=== PATIENT | female | born 1980 | race Caucasian/White ===

== ENCOUNTER 2017-04-15 11:27 | Outpatient (CLI) ==
[2016-03-15 21:36] VITALS: BMI 26.5
--- NOTE | 2017-04-15 12:57 | DI ---
EXAM: Radiographs, cervical spine HISTORY: Neck pain. COMPARISON: None available. TECHNIQUE: Six views. FINDINGS: There is reversal of the normal lordosis centered at C5-6. Alignment is normal. Vertebra l body heights are maintained. There is moderate loss of disc height at C6-7 with associated endplat e osteophyte formation. There is mild loss of disc height and endplate osteophyte formation at C5-6. No fracture or subluxation detected. Prevertebral soft tissues are unremarkable. IMPRESSION: 1. Degenerative disc disease at C5-6 and C6-7. 2. Reversal of the normal cervical lordosis.
--- NOTE | 2017-04-15 12:59 | DI ---
EXAM: Thoracic spine radiographs. HISTORY: Chronic back pain. COMPARISON: None available. TECHNIQUE: Frontal, lateral and swimmer's views. FINDINGS: The normal curvature and alignment are maintained. Vertebral body and intervertebral disc heights are normal. Mild multilevel endplate osteophyte formation noted. No fracture or subluxatio n seen. Adjacent soft tissues are unremarkable. IMPRESSION: Mild degenerative disc disease.
== END 2017-04-15 11:28 | disposition home or self-care (01) ==
LOC: RAD 11:27
PROVIDERS: ATTEND Family Medicine
DX: M54.2 Cervicalgia (principal); M54.6 Pain in thoracic spine; G89.29 Other chronic pain

== ENCOUNTER 2017-05-01 06:41 | Emergency (ER) ==
[2017-05-01 06:46] VITALS: BP 125/81; TEMP 99.6
[2017-05-01] MEDS ORDERED: NORCO 10-325 PO STA (07:00)
[2017-05-01] MEDS ORDERED: BENADRYL IM STA (07:00)
[2017-05-01] MEDS ORDERED: DECADRON 4 MG/ML SDV IM STA (07:00)
--- NOTE | 2017-05-01 07:05 | ED.PDOC ---
General ED Provider: Dr. ARLENE HARRIS Chief Complaint: Fever Stated Complaint: insect bite right leg Time Seen by Physician: 07:00 (seen with romulo at all times photos attached) Mode of Arrival: Walk-In Information Source: Patient Exam Limitations: No limitations Primary Care Provider: CARLIN HAWK Nursing and Triage Documentation Reviewed and Agree: Yes (see photos) Review of Systems - Review Of Systems Constitutional: Reports: No symptoms Eyes: Reports: No symptoms Ears, Nose, Mouth, Throat: Reports: No symptoms Respiratory: Reports: No symptoms Cardiac: Reports: No symptoms GI: Reports: No symptoms : Reports: No symptoms Musculoskeletal: Reports: No symptoms Skin: Reports: Rash (right upper leg see photos) Neurological: Reports: No symptoms Endocrine: Reports: No symptoms Hematologic/Lymphatic: Reports: No symptoms All Other Systems: Reviewed and Negative Past Medical History - Past Medical History Previously Healthy: No Endocrine: Reports: None Cardiovascular: Reports: None Respiratory: Reports: None Hematological: Reports: None Gastrointestinal: Reports: GERD Genitourinary: Reports: None Neuro/Psych: Reports: Migraine, Anxiety, Depression Musculoskeletal: Reports: None Cancer: Reports: None Last Menstrual Period: 2 YEARS AGO - Surgical History General Surgical History: Reports: Other (spinal cord procedure) - Family History Family History: Reports: None - Social History Smoking Status: Never smoker Hx Substance Use: No Alcohol Screening: Occasionally - Immunizations Tetanus Shot up to Date: Yes Physical Exam - Physical Exam Appearance: Well-appearing, No pain distress, Well-nourished Eyes: TALON, EOMI, Conjunctiva clear ENT: Ears normal, Nose normal, Oropharynx normal Respiratory: Airway patent, Breath sounds clear, Breath sounds equal, Respirations nonlabored Cardiovascular: RRR, Pulses normal, No rub, No murmur GI/: Soft, Nontender, No masses, Bowel sounds normal, No Organomegaly Musculoskeletal: Normal strength, ROM intact, No edema, No calf tenderness Skin: Warm, Dry (3 cm rash as noted in the photos ) Neurological: Sensation intact, Motor intact, Reflexes intact, Cranial nerves intact, Alert, Oriented Psychiatric: Affect appropriate, Mood appropriate Critical Care Note - Critical Care Note Total Time (mins): 0 Course - Course Hematology/Chemistry: 05/01/17 07:15 Orders, Labs, Meds: Lab Review 05/01/17 05/01/17 07:15 07:15 WBC 9.21 RBC 4.08 L Hgb 11.6 L Hct 34.5 L MCV 84.6 MCH 28.4 MCHC 33.6 RDW Coeff of Sarah 14.1 Plt Count 171 Immature Gran % (Auto) 0.2 Neut % (Auto) 92.4 Lymph % (Auto) 2.3 L [place] % (Auto) 2.5 Eos % (Auto) 2.5 Baso % (Auto) 0.1 Immature Gran # (Auto) 0.0 Neut # 8.5 H Lymph # 0.2 L [place] # 0.2 L Eos # 0.2 Baso # 0.0 Serum , Qual Negative Orders Category Date Time Status CBC W/ AUTO DIFF Stat LAB 05/01/17 07:01 Ordered COMPREHENSIVE METABOLIC PANEL Stat LAB 05/01/17 07:01 Ordered MOLECULAR GROUP A STREP Stat LAB 05/01/17 07:20 Results RAPID STREP SCREEN [STREP SCREEN] Stat LAB 05/01/17 07:20 Results SERUM Stat LAB 05/01/17 Ordered Dexamethasone 4 mg/ml Inj [Decadron 4 mg/ml Sdv] MEDS 05/01/17 07:00 Stat 4 mg IM ONCE STA Diphenhydramine Inj [Benadryl] MEDS 05/01/17 07:00 Stat 25 mg IM ONCE STA Hydrocodone Bit/Acetaminophen [[place] 10-325] MEDS 05/01/17 07:00 Stat 1 tab PO ONCE STA Medications Discontinued Medications Generic Name Dose Route Start Last Admin Trade Name Santiago PRN Reason Stop Dose Admin Acetaminophen/Hydrocodone Bitart 1 tab 05/01/17 07:00 05/01/17 07:16 [place] 10-325 PO 05/01/17 07:01 1 tab ONCE STA Administration Dexamethasone Sodium Phosphate 4 mg 05/01/17 07:00 05/01/17 07:19 Decadron 4 Mg/Ml Sdv IM 05/01/17 07:01 4 mg ONCE STA Administration Diphenhydramine HCl 25 mg 05/01/17 07:00 05/01/17 07:19 Benadryl IM 05/01/17 07:01 25 mg ONCE STA Administration Vital Signs: Temp Pulse Resp BP Pulse Ox 05/01/17 06:42 99.6 F 124 H 18 125/81 98 Departure - Departure Time of Disposition: 08:15 (seen with nurse at all times aand photos enclosed ) Disposition: HOME SELF-CARE Discharge Problem: Insect bite Qualifiers: Encounter type: initial encounter Qualified Code(s): W57.XXXA - Bitten or stung by nonvenomous insect and other nonvenomous arthropods, initial encounter Instructions: Insect Bite or Sting (ED) Condition: Good Pt referred to PMD for follow-up: Yes Prescriptions: Amoxicillin 500 mg PO Q8HR #15 tablet Hydrocodone/Acetaminophen [[place] 10-325 Tablet] 1 each PO Q8HR #4 tablet Prednisone 10 mg PO DAILYWM #7 tablet Allergies/Adverse Reactions: Allergies Penicillins Adverse Reaction (Verified 03/15/16 21:36) Home Medications: Ambulatory Orders Clonazepam [Klonopin] 1 mg PO QID 10/03/13 Fluoxetine HCl [Prozac] 10 mg PO DAILY 10/03/13 Ranitidine HCl [Zantac] 300 mg PO BID #30 tablet 04/23/15 Amoxicillin 500 mg PO Q8HR #15 tablet 05/01/17 Diclofenac Sodium [Voltaren] 50 mg PO TID 05/01/17 Gabapentin [Neurontin] 100 mg PO TID 05/01/17 Hydrocodone/Acetaminophen [[place] 10-325 Tablet] 1 each PO Q8HR #4 tablet Prednisone 10 mg PO DAILYWM #7 tablet 05/01/17 Disposition Discussed With: Patient
[2017-05-01 07:25] LABS: BASOPHILS % (AUTO) 0.1 % (0.0-3.0); EOSINOPHILS # (AUTO) 0.2 K/ul (0.0-0.7); EOSINOPHILS % (AUTO) 2.5 % (0.0-7.0); HEMATOCRIT 34.5 % (37.0-47.0); HEMOGLOBIN 11.6 g/dl (12.0-16.0); IMMATURE GRANULOCYTE % (AUTO) 0.2 % (0.0-5.0); LYMPHOCYTES # (AUTO) 0.2 K/uL (0.60-3.4); LYMPHOCYTES % (AUTO) 2.3 (10.0-50.0); MEAN CORPUSCULAR HEMOGLOBIN 28.4 pg (27.0-31.0); MEAN CORPUSCULAR HGB CONC 33.6 (31.8-35.4); MEAN CORPUSCULAR VOLUME 84.6 fl (81.0-99.0); MONOCYTES # (AUTO) 0.2 K/uL (0.4-2.0); MONOCYTES % (AUTO) 2.5 (0-10); NEUTROPHILS # (AUTO) 8.5 K/ul (2.0-6.9); NEUTROPHILS % (AUTO) 92.4; PLATELET COUNT 171 10^3/uL (140-440); RED BLOOD COUNT 4.08 10^6/ul (4.20-5.40); WHITE BLOOD COUNT 9.21 K/ul (4.6-10.2)
[2017-05-01 07:35] LABS: SERUM PREGNANCY INTERNAL QC INTERNAL QC VALID
[2017-05-01 07:40] LABS: ALBUMIN 3.5 g/dL (3.4-5.0); ALBUMIN/GLOBULIN RATIO 0.95; ANION GAP 12.5; BILIRUBIN,TOTAL 1.45 mg/dL (0.00-1.20); BUN/CREATININE RATIO 24.05; CALCIUM 8.7 mg/dL (8.2-10.2); CREATININE 0.79 mg/dL (0.60-1.30); POTASSIUM 3.5 mmol/L (3.5-5.10); TOTAL PROTEIN 7.2 g/dL (6.4-8.2)
== END 2017-05-01 09:01 | disposition home or self-care (01) ==
LOC: ED 06:41
DX: S70.361A Insect bite (nonvenomous), right thigh, initial encounter (principal); R50.9 Fever, unspecified; R21 Rash and other nonspecific skin eruption; W57.XXXA Bitten or stung by nonvenomous insect and other nonvenomous arthropods, initial encounter
CPT/HCPCS: 36415; 80053; 84703; 85025; 87651; 87880; 96372; 99283

== ENCOUNTER 2017-05-02 10:35 | Emergency (ER) ==
[2017-05-02 10:40] VITALS: BP 150/87; TEMP 98.3
[2017-05-02] MEDS ORDERED: VANCOMYCIN 1 GM in SODIUM CHLORIDE 250 ML IV STA (11:20)
[2017-05-02] MEDS ORDERED: MORPHINE 4 MG/ML VIAL IVP STA (11:20)
[2017-05-02] MEDS ORDERED: ZOFRAN 4 MG/2 ML IVP STA (11:20)
[2017-05-02] MEDS ORDERED: SOLU-MEDROL 125 MG IVP STA (11:21)
--- NOTE | 2017-05-02 11:22 | ED.PDOC ---
General ED Provider: Dr. CHERYL HOLBROOK Chief Complaint: Bite Stated Complaint: Patient is a 37 year old female who was seen yesterday for a spider bite on the right thigh. She was palced on penicillin and bactrium which she has been taking. States that the rash is worse with increased pain on the thight and red rash on the leg and abdomen with itching. Time Seen by Physician: 10:40 Mode of Arrival: Walk-In Information Source: Patient Exam Limitations: No limitations Primary Care Provider: CARLIN HAWK Nursing and Triage Documentation Reviewed and Agree: Yes Skin Complaint Exam - Skin/Soft Tissue Complaint/Exam Onset/Duration: 2 days Symptoms Are: Still present Timing: Constant Initial Severity: Moderate Current Severity: Severe Location: right lower thigh Character: Reports: Redness, Painful Aggravating: Reports: Touch Alleviating: Reports: None Associated Signs and Symptoms: Reports: Drainage, Tenderness, Red streaks ( hemorragic ) Related History: Reports: Insect bite/sting. Denies: Similar episode, Recent trauma, Recent Med change, Prior MRSA/VRE, Recent inpatient, Recent travel, Immunocompromised Related Surgical History: Reports: None Recent Exposure to Others w/Similar Symptoms: No Skin Findings: Present: Erythema, Skin lesion, Weeping skin Joint Tenderness Present: No Differential Diagnoses: Abscess, Cellulitis, Lymphadenitis Review of Systems - Review Of Systems Constitutional: Reports: No symptoms Eyes: Reports: No symptoms Ears, Nose, Mouth, Throat: Reports: No symptoms Respiratory: Reports: No symptoms Cardiac: Reports: No symptoms GI: Reports: No symptoms : Reports: No symptoms Musculoskeletal: Reports: Muscle pain (rigth thigh ) Skin: Reports: Lesions (right thigh), Rash Neurological: Reports: Anxiety Endocrine: Reports: No symptoms Hematologic/Lymphatic: Reports: No symptoms All Other Systems: Reviewed and Negative Past Medical History - Past Medical History Previously Healthy: No Endocrine: Reports: None Cardiovascular: Reports: None Respiratory: Reports: None Hematological: Reports: None Gastrointestinal: Reports: GERD Genitourinary: Reports: None Neuro/Psych: Reports: Migraine, Anxiety, Depression Musculoskeletal: Reports: None Cancer: Reports: None Last Menstrual Period: HYSTERECTOMY - Surgical History General Surgical History: Reports: Other (spinal cord procedure) - Family History Family History: Reports: None - Social History Smoking Status: Never smoker Hx Substance Use: No Alcohol Screening: Occasionally - Immunizations Tetanus Shot up to Date: Yes Physical Exam - Physical Exam Appearance: Well-appearing, No pain distress, Well-nourished Eyes: TALON, EOMI, Conjunctiva clear ENT: Ears normal, Nose normal, Oropharynx normal Respiratory: Airway patent, Breath sounds clear, Breath sounds equal, Respirations nonlabored Cardiovascular: RRR, Pulses normal, No rub, No murmur GI/: Soft, Nontender, No masses, Bowel sounds normal, No Organomegaly Musculoskeletal: Normal strength, ROM intact, No edema, No calf tenderness Neurological: Sensation intact, Motor intact, Reflexes intact, Cranial nerves intact, Alert, Oriented Psychiatric: Anxious Re-Evaluation - Re-Evaluation Time of Re-Evaluation: 14:26 Status: Improved Vital Signs Stable: Yes Pain Level: better Critical Care Note - Critical Care Note Total Time (mins): 0 Course - Course Hematology/Chemistry: 05/02/17 11:35 12 11:35 Orders, Labs, Meds: Lab Review 05/02/17 12 11:35 11:35 WBC 14.38 H D RBC 4.17 L Hgb 11.8 L Hct 35.7 L MCV 85.6 MCH 28.3 MCHC 33.1 RDW Coeff of Sarah 14.5 Plt Count 191 Immature Gran % (Auto) 0.6 Neut % (Auto) 89.9 Lymph % (Auto) 3.3 L [place] % (Auto) 3.1 Eos % (Auto) 3.0 Baso % (Auto) 0.1 Immature Gran # (Auto) 0.1 Neut # 12.9 H Lymph # 0.5 L [place] # 0.5 Eos # 0.4 Baso # 0.0 Sodium 140 Potassium 3.5 Chloride 109 H Carbon Dioxide 20 L Anion Gap 14.5 BUN 12 Creatinine 0.82 Estimated GFR (MDRD) 79.00 BUN/Creatinine Ratio 14.63 Glucose 104 Calcium 9.6 Total Bilirubin 0.41 AST 21 ALT 44 Alkaline Phosphatase 63 Total Protein 8.0 Albumin 3.6 Globulin 4.4 Albumin/Globulin Ratio 0.82 Orders Category Date Time Status BLOOD CULTURE Stat LAB 05/02/17 11:35 Received CBC W/ AUTO DIFF Stat LAB 05/02/17 11:35 Completed COMPREHENSIVE METABOLIC PANEL Stat LAB 05/02/17 11:35 Completed WOUND CULTURE Stat LAB 05/02/17 12:00 Results Lorazepam [Ativan] MEDS 05/02/17 14:00 Discontinued 1 mg PO ONCE STA Methylprednisolone Sod Succ/Pf [Solu-Medrol 125 mg] MEDS 05/02/17 11:21 Discontinued 125 mg IVP ONCE STA Morphine Sulfate [Morphine 4 mg/ml Vial] MEDS 05/02/17 11:20 Discontinued 4 mg IVP ONCE STA Ondansetron HCl/Pf [Zofran 4 mg/2 ml] MEDS 05/02/17 11:20 Discontinued 4 mg IVP ONCE STA Sodium Chloride 0.9% [Sodium Chloride] 1,000 ml MEDS 05/02/17 14:15 Discontinued IV 100 mls/hr Vancomycin HCl [Vancomycin] 1 gm MEDS 05/02/17 11:20 Discontinued 0.9 % Sodium Chloride [Sodium Chloride] 250 ml IV ONCE Medications Discontinued Medications Generic Name Dose Route Start Last Admin Trade Name Freq PRN Reason Stop Dose Admin Vancomycin HCl 1 gm/ Sodium 250 mls @ 250 mls/hr 05/02/17 11:20 05/02/17 12: 31 Chloride IV 05/02/17 12:19 250 mls/hr ONCE STA Administration Sodium Chloride 1,000 mls @ 100 mls/hr 05/02/17 14:15 Sodium Chloride IV 05/03/17 00:14 .Q10H STA Lorazepam 1 mg 05/02/17 14:00 05/02/17 14:16 Ativan PO 05/02/17 14:01 1 mg ONCE STA Administration Methylprednisolone Sodium Succinate 125 mg 05/02/17 11:21 05/02/17 12:24 Solu-Medrol 125 Mg IVP 05/02/17 11:22 125 mg ONCE STA Administration Morphine Sulfate 4 mg 05/02/17 11:20 05/02/17 12:31 Morphine 4 Mg/Ml Vial IVP 05/02/17 11:21 4 mg ONCE STA Administration Ondansetron HCl 4 mg 05/02/17 11:20 05/02/17 12:26 Zofran 4 Mg/2 Ml IVP 05/02/17 11:21 4 mg ONCE STA Administration Vital Signs: Temp Pulse Resp BP Pulse Ox 05/02/17 10:36 98.3 F 96 H 18 150/87 H 98 Departure - Departure Time of Disposition: 14:24 Disposition: [facility]SF SHORT-TRM HOSP Discharge Problem: Abscess Insect bite Qualifiers: Encounter type: initial encounter Qualified Code(s): W57.XXXA - Bitten or stung by nonvenomous insect and other nonvenomous arthropods, initial encounter Spider bite wound Qualifiers: Encounter type: initial encounter Injury intent: accidental or unintentional Qualified Code(s): T63.301A - Toxic effect of unspecified spider venom, accidental (unintentional), initial encounter Instructions: Abscess (ED) Condition: Serious Pt referred to PMD for follow-up: No (transfered ) Allergies/Adverse Reactions: Allergies Penicillins Adverse Reaction (Verified 03/15/16 21:36) Home Medications: Ambulatory Orders Clonazepam [Klonopin] 1 mg PO QID 10/03/13 Fluoxetine HCl [Prozac] 10 mg PO DAILY 10/03/13 Ranitidine HCl [Zantac] 300 mg PO BID #30 tablet 04/23/15 Amoxicillin 500 mg PO Q8HR #15 tablet 05/01/17 Diclofenac Sodium [Voltaren] 50 mg PO TID 05/01/17 Gabapentin [Neurontin] 100 mg PO TID 05/01/17 Hydrocodone/Acetaminophen [[place] 10-325 Tablet] 1 each PO Q8HR #4 tablet Prednisone 10 mg PO DAILYWM #7 tablet 05/01/17 Sulfamethoxazole/Trimethoprim [Bactrim Ds Tablet] 1 each PO BIDWM 5 Days #10 tablet 05/01/17 Pt. Stabilized Within Hospital's Capabilities/Transferred To: [facility] Transfer Form Completed: Yes Disposition Discussed With: Patient
[2017-05-02 12:00] LABS: BASOPHILS % (AUTO) 0.1 % (0.0-3.0); EOSINOPHILS # (AUTO) 0.4 K/ul (0.0-0.7); HEMATOCRIT 35.7 % (37.0-47.0); HEMOGLOBIN 11.8 g/dl (12.0-16.0); IMMATURE GRANULOCYTE % (AUTO) 0.6 % (0.0-5.0); LYMPHOCYTES # (AUTO) 0.5 K/uL (0.60-3.4); LYMPHOCYTES % (AUTO) 3.3 (10.0-50.0); MEAN CORPUSCULAR HEMOGLOBIN 28.3 pg (27.0-31.0); MEAN CORPUSCULAR HGB CONC 33.1 (31.8-35.4); MEAN CORPUSCULAR VOLUME 85.6 fl (81.0-99.0); MONOCYTES # (AUTO) 0.5 K/uL (0.4-2.0); MONOCYTES % (AUTO) 3.1 (0-10); NEUTROPHILS # (AUTO) 12.9 K/ul (2.0-6.9); NEUTROPHILS % (AUTO) 89.9; PLATELET COUNT 191 10^3/uL (140-440); RED BLOOD COUNT 4.17 10^6/ul (4.20-5.40); WHITE BLOOD COUNT 14.38 K/ul (4.6-10.2)
[2017-05-02 12:18] LABS: ALBUMIN 3.6 g/dL (3.4-5.0); ALBUMIN/GLOBULIN RATIO 0.82; ANION GAP 14.5; BILIRUBIN,TOTAL 0.41 mg/dL (0.00-1.20); BUN/CREATININE RATIO 14.63; CALCIUM 9.6 mg/dL (8.2-10.2); CREATININE 0.82 mg/dL (0.60-1.30); POTASSIUM 3.5 mmol/L (3.5-5.10)
[2017-05-02] MEDS ORDERED: ATIVAN PO STA (14:00)
[2017-05-02] MEDS ORDERED: SODIUM CHLORIDE 1,000 ML IV STA (14:15)
== END 2017-05-02 14:45 | disposition short-term general hospital (02) ==
LOC: ED 10:35
DX: L02.415 Cutaneous abscess of right lower limb (principal); T63.301D Toxic effect of unspecified spider venom, accidental (unintentional), subsequent encounter; W57.XXXA Bitten or stung by nonvenomous insect and other nonvenomous arthropods, initial encounter
CPT/HCPCS: 36415; 80053; 85025; 87040; 87070; 96365; 96375; 99285